=== PATIENT | female | born 1955 | race Caucasian/White ===

== ENCOUNTER → 2017-10-04 | Outpatient (CLI) | payer BC ==
[~2017-10-04] MED LIST: BACTRIM,SEPT1 TABLET PO; BIOTIN1000 MCG PO; Bactroban Nasal Oint NS; Biotin PO; CALTRATE 6001 TABLE1 PO; CELECOXIB200 MG PO; Coumadin,Jantoven PO; ENDOCET 5-3251 EACH PO; Feosol PO; GLUCOSAMINE CH1 EACH PO; Glucosamine/Chondroi PO; IRON325 M1 PO; K-Dur PO; LASIX40 MG PO; MARTINIC1 EACH PO; OXYCODONE HCL5 MG PO; THERAGRAN1 TABLET PO; ULTRAM50 MG PO; VITAMIN B-122500 MCG SL; VOLTAREN75 MG PO; XARELTO10 MG PO; ZOLOFT50 MG PO; Zoloft PO; [UNRECOGNIZED DRUG - OTHER] PO
[2017-10-04 16:58] LABS: APPEARANCE SL.HAZY/COLORLESS; CSF TUBE NUMBER TUBE #3
[2017-10-04 16:59] LABS: RED CELL COUNT 1275 /MM^3 (0-1); WHITE CELL COUNT 4 /MM^3 (0-5)
[2017-10-04 17:10] LABS: CSF EOSINOPHILS 0 % (0-25); MONONUCLEAR WBC'S 80 % (50-90); POLYNUCLEAR WBC'S 20 % (0-3)
[2017-10-04 17:14] LABS: CSF PROTEIN 77 mg/dL (15-45)
[2017-10-04 17:18] LABS: APPEARANCE (RECHECK) CLEAR/COLORLESS; CSF TUBE NUMBER (RECHECK) TUBE #1
[2017-10-04 17:20] LABS: GLUCOSE, CSF 60 mg/dL (40-80)
[2017-10-04 17:24] LABS: RED CELL COUNT (RECHECK) 283 /MM^3 (0-1)
[2017-10-06 13:22] LABS: HSV CSF Spec Source CSF (())
== END | disposition home or self-care (01) ==
LOC: RAD 13:48
PROVIDERS: Psychiatry & Neurology Neurology
PROC: 009U3ZZ Drainage of Spinal Canal, Percutaneous Approach (ICD-10-PCS; principal; 2017-10-04)
DX: R93.0 Abnormal findings on diagnostic imaging of skull and head, not elsewhere classified (principal)
CPT/HCPCS: 62270; 77003; 82040 90; 82042 90; 82784 90; 82945; 83916 90; 84157; 86592 90; 86617 90; 86618 90; 87070; 87205; 87529 90; 89051